=== PATIENT | male | born 1940 | race Caucasian/White ===

== ENCOUNTER 2020-01-15 14:07 | Outpatient (CLI) | payer MEDICARE, OTHER, SELFPAY ==
--- NOTE | 2020-01-15 14:29 | ECHO_ITS ---
Patient Info Name: Deon Marrero Age: 79 years : 1940 Gender: Male Ht: 67 in Wt: 240 lbs BSA: 2.32 m2 HR: 61 bpm BP: 162 / 80 mmHg Technical Quality: Good Exam Date: 01/15/2020 2:37 PM Exam Location: [facility] Pulmonary Patient Status: Outpatient Admit Date: 01/15/2020 Staff Ordering Physician: Perry Villegas MD Fish And Wildlife Biologist: Maria Medellin RDCS Attending Provider: Perry Villegas MD Referring Physician: Nelly MEDLEY; Exam Type: CA echo doppler color flow Study Info Indications - GAYLE SULTANA Complete two-dimensional, color flow and Doppler transthoracic echocardiogram is performed. Summary 1. Left ventricular chamber dimension is normal. 2. Left ventricular systolic function is normal, estimated at 60-65%. 3. Ventricular septum is sigmoid shaped. 4. The left ventricular diastolic function is grade I diastolic dysfunction. 5. Tissue doppler is not performed. 6. Left atrial chamber dimension is mildly enlarged. 7. There is trace tricuspid valve regurgitation. 8. RVSP is 37 mmHg which suggests normal pulmonary pressure. 9. There is trace pulmonic regurgitation. Left Ventricle Tissue doppler is not performed. Ventricular septum is sigmoid shaped. Left ventricular chamber dimension is normal. Left ventricular systolic function is normal, estimated at 60-65%. The left ventricular diastolic function is grade I diastolic dysfunction. Right Ventricle Right ventricular chamber dimension is normal. Right ventricular systolic function is normal. Left Atria Left atrial chamber dimension is mildly enlarged. Right Atria Right atrial chamber dimension is normal. Aortic Valve The aortic valve is trileaflet. There is no aortic valve stenosis. There is no aortic valve regurgitation. Pulmonic Valve There is trace pulmonic regurgitation. Mitral Valve There is no mitral valve stenosis. There is no mitral valve regurgitation. Tricuspid Valve RVSP is 37 mmHg which suggests normal pulmonary pressure. There is trace tricuspid valve regurgitation. Pericardium/Pleural There is no pericardial effusion. Inferior Vena Cava Normal inferior vena cava with >50% collapse upon inspiration consistent with normal right atrial pressure, 5 mmHg. Aorta The aortic root size at the sinus of Valsalva is normal. Tricuspid Valve Name Value Normal Estimated PAP/RSVP RA Pressure 5 mmHg <=5 Report Signatures
== END 2020-01-15 14:08 | disposition home or self-care (01) ==
LOC: ANHCARD 14:13
PROVIDERS: PCP Emergency Medicine; Visit Provider Emergency Medicine
DX: R06.09 Other forms of dyspnea (principal); R60.9 Edema, unspecified
CPT/HCPCS: 93306

== ENCOUNTER 2021-04-12 09:47 | Outpatient (CLI) | payer MEDICARE, OTHER, SELFPAY ==
--- NOTE | 2021-04-12 10:17 | ECG_ITS ---
Measurements Intervals [place] Rate: 53 P: 43 NE: 190 QRS: 1 QRSD: 85 T: 69 QT: 442 QTc: 415 Interpretive Statements SINUS BRADYCARDIA ATRIAL PREMATURE COMPLEXES EARLY PRECORDIAL R/S TRANSITION BASELINE ARTIFACT- I, II, III, AVL BORDERLINE ECG Electronically Signed On 04-12-2021 10:39:13 CDT by Juan Riddle D.O.
== END 2021-04-12 09:48 | disposition home or self-care (01) ==
LOC: ANHCARD 09:49
PROVIDERS: PCP Emergency Medicine; Visit Provider Emergency Medicine
DX: R00.1 Bradycardia, unspecified (principal); R94.31 Abnormal electrocardiogram [ECG] [EKG]
CPT/HCPCS: 93005

== ENCOUNTER 2022-02-27 14:26 | Inpatient (IN) | payer MEDICARE, OTHER, SELFPAY ==
--- NOTE | ~2022-02-27 | US_ITS ---
EXAMINATION: US carotid duplex BI EXAM DATE: 03/01/2022 14:41 INDICATION: Visual abnormality, speech impairment. Insomnia . TECHNIQUE: Grayscale, color and pulsed Doppler images of the cervical carotid arteries were obtained . The degree of vessel stenosis is placed in one of the following categories: normal, <50% stenosis, 50-69% stenosis, >=70% stenosis but less than near-occlusion, near-occlusion, or occlusion. Note that percent stenosis relative to normal distal artery lumen diameter is indirectly measured from velocit y measurements as described by Michael, et al. Radiology 2003; 229:340-346. There is no prior study fo r comparison. FINDINGS: RIGHT SIDE: Right common carotid artery peak systolic velocity (PSV in cm/s): 124 Right bulb/internal carotid artery peak systolic velocity (PSV in cm/s): 90 Right internal carotid artery end diastolic velocity (EDV in cm/s): 21 Right ICA/CCA peak systolic ratio: 0.7 Right external carotid artery peak systolic velocity (PSV in cm/s): 92 Right vertebral artery antegrade flow: yes There is mild carotid bulb plaque. Velocity and Doppler waveforms in the common and internal carotid arteries is normal. LEFT SIDE: Left common carotid artery peak systolic velocity (PSV in cm/s): 97 Left bulb/internal carotid artery peak systolic velocity (PSV in cm/s): 122 Left internal carotid artery end diastolic velocity (EDV in cm/s): 29 Left ICA/CCA peak systolic ratio: 1.3 Left external carotid artery peak systolic velocity (PSV in cm/s): 68 Left vertebral artery antegrade flow: yes There is mild carotid bulb plaque. Velocity and Doppler waveforms in the common and internal carotid arteries is normal. IMPRESSION: 1. Less than 50 percent stenosis in the right internal carotid artery. 2. Less than 50 percent stenosis in the left internal carotid artery. > Reviewed, dictated and finalized at location A.
--- NOTE | ~2022-02-27 | XR_ITS ---
EXAMINATION: XR chest 1V portable EXAM DATE: 02/27/2022 15:10 INDICATION: Transient Alteration Of Awareness,Worsening Last Night,Hx HTN TECHNIQUE: Portable AP frontal chest x-ray was obtained. Prior study from 2010 not available at this time for comparison. FINDINGS: The lungs are clear. There are no pleural effusions. Cardiac silhouette is prominent but magnified on this AP technique. There is no pneumothorax suspected. The bones and soft tissues ar e unremarkable. IMPRESSION: No acute cardiopulmonary findings. Reviewed, dictated and finalized at location A.
--- NOTE | ~2022-02-27 | CT_ITS ---
EXAMINATION: CT chest abdomen pelvis w con DATE: 02/28/2022 12:45 INDICATION: Night sweats, weakness and hypothyroidism TECHNIQUE: Computed tomography (CT) of the chest, abdomen, and pelvis was performed with 100 mL Omnip aque-350 intravenous contrast. Automated exposure control and iterative reconstruction technique were employed. The dose-length product was 1559.47 mGy-cm. COMPARISON: None FINDINGS: CHEST CT: Lungs are clear with no focal airspace opacities, pulmonary edema, pleural effusion or pneumothorax. Heart size is normal. Atherosclerotic coronary artery calcific location. No pericardial effusion. Aor tic valve calcification. Thoracic aorta is normal in caliber with no dissection. Thyroid is unremarka ble. No pathologically enlarged thoracic lymphadenopathy. Mild bilateral gynecomastia. Chronic anteri or wedging, mild at T7 and minimal at T6 and T8. Moderate cervical and thoracic spondylosis with brid ging osteophytes at multiple levels, consistent with diffuse idiopathic skeletal hyperostosis (DISH). ABDOMEN/PELVIS CT: Liver, gallbladder, spleen, pancreas, bilateral adrenal glands and kidneys are normal. Bowels includi ng the appendix are normal. Small fat-containing umbilical hernia. Bladder is normal. Prostatomegaly measuring 5.0 x 4.0 cm. No free intraperitoneal gas or fluid. No pathologically enlarged abdominal or pelvic lymphadenopathy. There is calcified atherosclerosis of the aorta and many of the other arteri es. Severe bilateral lower lumbar facet osteoarthritis. Otherwise mild degenerative skeletal changes in the lumbar spine and pelvis. IMPRESSION: 1. No acute intrathoracic, abdominal or pelvic process. 2. Small fat-containing umbilical hernia. 3. Prostatomegaly. Reviewed, dictated and finalized at location B.
--- NOTE | ~2022-02-27 | MR_ITS ---
EXAMINATION: MR pituitary wo/w con DATE: 02/28/2022 14:49 INDICATION: Pituitary adenoma. TECHNIQUE: Magnetic resonance imaging (MRI) of the brain and brainstem was performed without and with 20 mL MultiHance intravenous contrast. Whole-brain sequences included sagittal T1-weighted FSE, axia l diffusion-weighted FS EPI, axial T2*-weighted GRE, axial T2-weighted FLAIR Propeller, and axial T2- weighted Propeller. Small [id number] sequences included sagittal and coronal T1-weighted FSE cente red at the pituitary. Postcontrast sequences included small [id number]-[id number] coronal T1-weighted FSE in a time course and sagittal T1-weighted FSE and whole-brain axial T1-weighted FSE. Apparent diffusion coefficient (ADC) maps were created. COMPARISON: Head CT 02/27/2022 FINDINGS: There is chronic encephalomalacia in anterior left upper lobe. There are surgical changes i n the sella. The pituitary demonstrates a height of 3 mm. In the left side of the sella, there is a 1 6 x 7 x 18 mm enhancing mass. No specific evidence of cavernous sinus invasion. There are scattered a reas of nonspecific increased T2-weighted signal intensity in the cerebral white matter. There is no acute ischemic infarct or intracranial hemorrhage. The ventricles are normal in size. There is comple te opacification of right sphenoid sinus. There is mild mucosal thickening in the ethmoid sinuses. Th e mastoid air cells are normal. IMPRESSION: 1. 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 Compari son with outside preoperative and postoperative imaging may be useful. 2. Chronic encephalomalacia in anterior left temporal lobe. 3. Mild nonspecific cerebral white matter disease, which likely represents chronic small vessel ische krzysztof disease. Reviewed, dictated and finalized at location A. IMPRESSION: 1. 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 Comparison with outside preoperative and postoperative imaging m ay be useful. 2. Chronic encephalomalacia in anterior left temporal lobe. 3. Mild nonspecific cerebral white matter disease, which likely represents intermission coordinator horacio small vessel ischemic disease.
--- NOTE | ~2022-02-27 | CT_ITS ---
EXAMINATION: CT brain wo con DATE: 02/27/2022 15:18 INDICATION: Altered mental status. TECHNIQUE: Computed tomography (CT) of the head was performed without intravenous contrast. The mA wa s adjusted according to patient size. Iterative reconstruction technique was employed. The dose-lengt h product was 605.33 mGy-cm. COMPARISON: None FINDINGS: There are scattered areas of low attenuation in the cerebral white matter. There is chronic encephalomalacia in anterior left temporal lobe. There is an empty sella. There is no intracranial h emorrhage, acute infarction, or abnormal intracranial mass lesion. The ventricles are normal in size. There is mucosal thickening in the paranasal sinuses including complete opacification of right sphen oid sinus. The mastoid air cells are normal. There are likely changes of ocular lens replacement surg eries. There are changes of left-sided craniotomy. IMPRESSION: 1. Chronic encephalomalacia in anterior left temporal lobe with overlying craniotomy. 2. Mild nonspecific cerebral white matter disease, which likely represents chronic small vessel ische krzysztof disease. Reviewed, dictated and finalized at location A. IMPRESSION: 1. Chronic encephalomalacia in anterior left temporal lobe with overlying crani otomy. 2. Mild nonspecific cerebral white matter disease, which likely represents chrome polisher horacio small vessel ischemic disease.
--- NOTE | ~2022-02-27 | US_ITS ---
EXAMINATION: US thyroid DATE: 02/28/2022 12:57 INDICATION: Hypothyroidism TECHNIQUE: Multiple ultrasound images of the thyroid were obtained. COMPARISON: None. FINDINGS: The right thyroid lobe measures 4.0 x 1.5 x 2.7 cm. The left thyroid lobe measures 3.2 x 1.6 x 1.8 c m. 6 mm wide than tall solid hypoechoic right thyroid nodule with ill-defined margins (TI-RADS 4, mo derately suspicious , FNA if >=1.5 cm, annual followup is >=1 cm). There is normal echotexture, echog enicity and vascular flow throughout the thyroid gland. IMPRESSION: 1. 6 mm TI RADS 4 right thyroid nodule which remains below size criteria for either biopsy or follow- up. Otherwise normal thyroid. Reviewed, dictated and finalized at location B. IMPRESSION: 1. 6 mm TI RADS 4 right thyroid nodule which remains below size criteria for ei ther biopsy or follow-up. Otherwise normal thyroid.
[2022-02-27 14:33] VITALS: BP 177/107; PULSE 79; RESP 17; TEMP 37.2; O2SAT 94
--- NOTE | 2022-02-27 14:41 | ECG_ITS ---
Measurements Intervals [place] Rate: 78 P: 45 KS: 201 QRS: 1 QRSD: 80 T: 51 QT: 342 QTc: 390 Interpretive Statements SINUS RHYTHM WITH OCCASIONAL SUPRAVENTRICULAR PREMATURE COMPLEXES COMPARED TO ECG 04/12/2021 10:24:18 NO LONGER BRADYCARDIC. Electronically Signed On 02-27-2022 16:51:50 CDT by Celi Portillo M.D.
[2022-02-27 14:55] LABS: Base Excess ABG 0.1 mEq/l (+/-2.0); Fractional Inspired Oxygen 21 %; HCO3 ABG 24.1 mEq/l (22.0-26.0); Oxygen Content ABG 16.5 %vol (16.0-22.0); Oxygen Saturation ABG 92.3 % (95.0-100.0); Oxyhemoglobin 89.5 % THb (90.0-100.0); PCO2 ABG 37.1 mmHg (35.0-45.0); PO2 ABG 61.3 mmHg (80.0-100.0); PO2 FiO2 Ratio Arterial Blood 2.92 %; Total Hemoglobin 13.1 g/dL (12.0-18.0); pH ABG 7.431 (7.350-7.450)
[2022-02-27 14:56] LABS: Device ROOM AIR; Modified Allen's Test Pass; Site Drawn RIGHT RADIAL
--- NOTE | 2022-02-27 15:05 | ED.AMS ---
HPI - Altered Mental Status General Chief Complaint: Altered Mental Status Stated Complaint: incoherent since last noc Source: family and EMS Mode of arrival: EMS Limitations: altered mental status History of Present Illness HPI narrative: The patient is a 81-year-old male with a history of pituitary adenoma in 2006 with removal, recurrence in 2019, psoriatic arthritis, hypertension, hypothyroidism, presenting to the emergency department for evaluation of altered mental status. Patient is currently awake, alert, to person, place, and to time. However, when questioned, he has difficulty providing any details. He denies any pain. Denies any acute complaints. For EMS, glucose was 156. He was mildly hypoxic to 92% thus placed on 2 L oxygen via nasal cannula in route. Patient is not on any home oxygen. His daughter at bedside helps to provide most of the history. States that her dad over the past 4 days has had increased daytime sleepiness, somnolence. He has had decreased activity level. He is not eating or drinking at baseline. States that he does have a history of [place]UC[place] with home CPAP, but does not often sleep with his CPAP machine. Patient follows at [facility] with rheumatology, neurology, neurosurgery, endocrinology. Patient went to see his primary care physician 5 days ago, his Celebrex was discontinued at that visit, no other medication changes. He was also prescribed antifungal for a candidal yeast infection of the groin. Related Data Home Medications Medication Instructions Recorded Confirmed aspirin 81 mg tablet,delayed 81 mg PO DAILY 01/12/20 11/14/20 release cholecalciferol (vitamin D3) 50 50 mcg PO DAILY 01/12/20 11/14/20 mcg (2,000 unit) capsule latanoprost 0.005 % eye drops 1 drop OPHTHALMIC (EYE) QPM 01/12/20 11/14/20 levothyroxine 112 mcg tablet 112 mcg PO DAILY 01/12/20 11/14/20 celecoxib 200 mg capsule 200 mg PO DAILY 01/13/20 11/14/20 clobetasol 0.05 % topical cream See Rx Instructions .ROUTE .COMPLEX 01/13/20 11/14/20 Allergies Allergy/AdvReac Type Severity Reaction Status Date / Time No Known Allergies Allergy Unverified 02/27/22 14:39 Review of Systems Review of Systems: CONSTITUTIONAL: Denies fever, chills, or sweats. EYES: Denies visual changes, redness, or discharge. ENT: Denies rhinorrhea, congestion, sore throat, or otalgia. CARDIOVASCULAR: Denies chest pain, palpitations, or edema. RESPIRATORY: Denies cough or dyspnea. GASTROINTESTINAL: Denies abdominal pain, nausea, vomiting, or diarrhea. GENITOURINARY: Denies dysuria or hematuria. SKIN: Denies rash or itching. MUSCULOSKELETAL: Denies back pain, joint pain, or myalgia. NEUROLOGIC: Denies headache, numbness, or weakness. [facility] Past Medical History Medical History (Updated 02/27/22 @ 20:38 by Jennifer Parra MD) HTN (hypertension) Pituitary adenoma Family History Family History Mother Family history of cardiovascular disease, Onset Age: 89 Father Family history of cardiovascular disease, Onset Age: 92 Sibling Acute myocardial infarction Cerebrovascular accident Social History Social History Smoking status: Never smoker Alcohol intake: never Exam Narrative: GENERAL: Awake, alert, intermittently somnolent, easily arousable HEAD: Normocephalic, atraumatic. EYES: 2+ PERRLA and EOMI and normal without gaze palsy ENT: Nares clear, no rhinorrhea or epistaxis. Mucous membranes dry NECK: Supple. No lymphadenopathy. CHEST: No respiratory distress, breathing even and non labored, no crackles HEART: Regular rate, sinus rhythm ABDOMEN: Mildly protuberant, Non distended, non tender EXTREMITIES: Normal range of motion. No significant edema. SKIN: Warm, dry, no rash. NEURO:No focal deficits. Alert and oriented x3. Finger to nose intact bilaterally. EOMs intact without nystagmus. No f
[2022-02-27 15:08] LABS: Basophils Percent Auto 0.5 % (0.2-1.2); Eosinophils Percent Auto 0.5 % (0-4.4); Hematocrit 40.7 % (42.0-52.0); Hemoglobin 13.2 g/dL (14.0-18.0); Immature Granulocyte Absolute 0.02 K/mm3 (0.00-0.031); Immature Granulocyte Percent A 0.3 % (0-0.5); Lymphocytes Percent Auto 26.4 % (18.3-44.2); Mean Corpuscular HGB Conc 32.4 g/dl (32-36); Mean Corpuscular Hemoglobin 29.4 pg (26-34); Mean Corpuscular Volume 90.6 fl (80-100); Mean Platelet Volume 9.4 fl (7.4-10.4); Monocytes Absolute Auto 1.1 K/mm3 (0.1-0.6); Monocytes Percent Auto 16.3 % (2.6-8.5); Neutrophils Absolute Auto 3.6 K/mm3 (1.3-6.7); Platelet Count Result 171 k/mm3 (150-375); Red Blood Count 4.49 M/mm3 (4.6-6.20); Red Cell Distribution Width 14.6 % (11.5-14.5); White Blood Count 6.4 K/mm3 (4.5-10.0)
[2022-02-27 15:17] LABS: Ammonia < 9 umol/L (9-30)
[2022-02-27 15:20] LABS: INR 1.2; Prothrombin Time 15.1 Seconds (11.1-14.7)
[2022-02-27 15:21] LABS: Alanine Aminotransferase 21 U/L (4-50); Albumin Level 4.4 g/dL (3.5-5.1); Alkaline Phosphatase 63 U/L (38-126); Anion Gap 7 mmol/L (8-16); Aspartate Amino Transferase 38 U/L (17-59); Bilirubin,Total 0.4 mg/dL (0.2-1.3); Blood Urea Nitrogen 20 mg/dL (9-20); Calcium 8.7 mg/dL (8.4-10.2); Carbon Dioxide 24 mmol/L (22-30); Chloride 101 mmol/L (98-107); Estimated CRCL calculation 69 ml/min; Estimated Glomerular Filt Rate > 60; Glucose 118 mg/dL (65-110); Partial Thromboplastin Time 29.2 SECONDS (22.3-36.8); Sodium 132 mmol/L (137-145)
[2022-02-27 15:33] LABS: Troponin I < 0.012 ng/mL (0.000-0.034)
[2022-02-27 15:52] LABS: Thyroid Stimulating Hormone 0.352 uIU/mL (0.465-4.680)
[2022-02-27] MEDS: SODIUM CHLORIDE 0.9% IV 1,000 ML 999 ML IV CONT (16:58)
[2022-02-27 17:09] LABS: Add Urine Microscopic? YES; Appearance Urine Clear (Clear); Bilirubin Urine Negative (Negative); Blood Urine Negative (Negative); Color Urine Yellow (Yellow); Glucose Urine UA Negative (Negative); Ketones Urine Negative (Negative); Leukocyte Esterase Ur Negative LEU/UL (Negative); Mucus Urine Rare /lpf; Nitrate Urine Negative (Negative); Protein Urine 1+ mg/dL (Negative); RBC Urine 0-2 /hpf (0-2); Specific Grav Ur 1.026 (1.001-1.035); Squamous Epithelial Cell Urine Rare /hpf (Few); Urobilinogen Urine Negative mg/dL (<2.0); WBC Urine 0-3 /hpf
[2022-02-27] MEDS: KETOROLAC 15 MG/ML VIAL (*BKC) IV PUSH (17:23)
[2022-02-27 19:25] VITALS: BP 151/71; PULSE 72; RESP 16; O2SAT 93
[2022-02-27 19:40] LABS: NT Pro B Type Natriuretic Pept 211 pg/mL (5-100)
[2022-02-27 20:00] VITALS: PULSE 71
[2022-02-27 20:09] VITALS: BP 155/70; PULSE 72; RESP 16; O2SAT 94
[2022-02-27 20:26] VITALS: BP 158/56; PULSE 69; RESP 17; TEMP 36.8; O2SAT 94; BMI 35.6
[2022-02-27 20:32] VITALS: BP 158/56; PULSE 69; RESP 17; TEMP 36.8; O2SAT 94
[2022-02-27 21:23] VITALS: BMI 35.6
--- NOTE | 2022-02-27 21:26 | PC.NURSE ---
This patient, Deon Marrero, was admitted to Medical Room 254-01. Patient/family oriented to hospital policies and general routines including ID bracelet, bed and alarms, visiting hours, pain management, procedures, bathroom and other care routines, personal items, smoking policy, room service/diet, and visiting hours. Information on how to activate the Rapid Response Team has been discussed. Patient/Family are encouraged to report perceived risks to care and to ask questions if they do not understand what they are told or what they should do.
--- NOTE | 2022-02-27 22:15 | PM.IMHP ---
H&P: HPI History of Present Illness Date/Time: 02/27/22 22:15 Chief Complaint: Weakness and altered mental status. Narrative: This is a pleasant 81-year-old male with history of pituitary adenoma status post resection, cerebrovascular accident, psoriatic arthritis, hypertension, hypothyroidism, and other comorbidities who presented to the emergency department via EMS from home for evaluation of weakness and altered mental status. He is alert and oriented x4 at the time my evaluation and he is able to provide a good history. From what I can gather these past 4 days he has just not felt like himself with generalized weakness, slow thought processes, mild slurred speech, and hypersomnolence. His daughter reports him as being ?incoherent? starting last night however she could not really give any more specifics. The patient himself also reports having frequent episodes where he will sweat through his shirt though he has no known fever or chills. With further questioning he admits to having occasional midsternal chest heaviness ?for a while? though he cannot provide me any further details. Specifically he is unable to tell me in what setting it occurs, how long it lasts, and how long it has been going on. His vital signs were stable on EMS arrival and his glucose was 156. Workup done in the emergency department was really unremarkable aside from mild hyponatremia and a TSH of 0.352. Head CT, chest x-ray, and urinalysis were also unremarkable. EKG demonstrated no acute findings. At the time my evaluation he had to urinate and a helped him stand at the side of the bed to use the urinal and he seemed unsteady on his feet. He has not had any falls but admits that he has felt like he may fall due to the weakness. Currently he has no complaints and specifically denies fever, headache, neck ache, acute visual changes (he has chronic diplopia with extreme lateral gaze), focal weakness, paresthesias, facial droop, dysarthria, dysphagia, current chest pain, pleuritic pain, palpitations, orthopnea, paroxysmal nocturnal dyspnea, edema, nausea, vomiting, diarrhea, and dysuria. He denies sick contacts, recent falls, recent procedures, recent change in medications (aside from discontinuing Celebrex), and missed medications. He has no history of seizure however a couple of times during the interview when I asked him questions he would become silent and stare straight ahead for upwards of 20 seconds before a repeat the question and he was able to answer. Review of Systems Review of Systems: Twelve systems were reviewed and are negative except for as per HPI. [facility] Past Medical History Medical History (Updated 02/27/22 @ 22:59 by Dominique Linn PA-C) Cerebrovascular accident Chronic facial pain V1 V2 distribution following multiple surgeries and radiation for pituitary adenoma. Glaucoma Hyperlipidemia Hypertension Hypogonadism Hypothyroidism Pituitary adenoma Status post transsphenoidal resection in October 2006, CyberKnife radiosurgery in August 2007, and stereotactic craniotomy for debulking in December 2018 followed by postoperative radiation. Psoriasis Psoriatic arthritis Right leg DVT Surgical History Surgical History (Updated 02/27/22 @ 22:57 by Dominique Linn PA-C) History of bilateral cataract extraction History of colonoscopy with polypectomy Family History Family History Mother Family history of cardiovascular disease, Onset Age: 89 Father Family history of cardiovascular disease, Onset Age: 92 Sibling Acute myocardial infarction Cerebrovascular accident Social History Social History (Updated 02/28/22 @ 00:24 by Dominique Linn PA-C) Social History: The patient lives in [place] with his and daughter. No alcohol, tobacco, or illicit substance use. He designates his Aleah and his daughter Chula as his surrogate decision makers. Code status: Full code
[2022-02-28] VITALS (8 sets, daily range): BP systolic 144–163; BP diastolic 67–83; PULSE 67–89; RESP 17–20; TEMP 35.7–36.6; O2SAT 93–97
--- NOTE | 2022-02-28 00:13 | ECHO_ITS ---
Patient Info Name: Deon Marrero Age: 81 years : 1940 Gender: Male Ht: 68 in Wt: 234 lbs BSA: 2.30 m2 BP: 160 / 67 mmHg Heart Rhythm: Indeterminant Technical Quality: Fair Exam Date: 02/28/2022 9:15 AM Exam Location: [facility] Pul[facility] Patient Status: Inpatient Admit Date: 02/27/2022 Staff Ordering Physician: Dominique Linn PA-C Morgue Keeper: Caren Higgins RDCS Attending Provider: Sue Nichols DO Referring Physician: Temitope FRANCIS; Exam Type: CA echo dop color flow w con Study Info Indications - weakness, diaphoresis Complete two-dimensional, color flow and Doppler transthoracic echocardiogram is performed with contrast to opacify the left ventricle and to improve the deliniation of the left ventricle endocardial borders. Contrast/Agitated Saline Contrast/Ag. Saline: Definity Amount: 2.00 ml Administered By: Caren Higgins RDCS Existing IV Access: Yes IV Access Condition: patent with no signs of infiltration Summary 1. Normal left ventricular size with mild asymmetric septal hypertrophy, 1.5 cm. No evidence of intraventricular gradient. Hyperdynamic systolic function, no segmental wall motion abnormalities. Ejection fraction was 78%. Grade 2 diastolic dysfunction is present. 2. No pulmonary hypertension, estimated pulmonary arterial systolic pressure is 25 mmHg. 3. The aortic root size is mildly dilated, 4.0 cm. 4. No significant valve disease. 5. Rhythm indeterminate. Left Ventricle Left ventricular chamber dimension is normal. Left ventricular systolic function is hyperdynamic, estimated at Empty. There is mild asymmetric septal increased left ventricular wall thickness. Left ventricular septal wall motion is normal. The left ventricular diastolic function is grade II diastolic dysfunction. Right Ventricle Right ventricular chamber dimension is normal. Right ventricular systolic function is normal. Left Atria Left atrial chamber dimension is normal. Right Atria Right atrial chamber dimension is normal. Aortic Valve The aortic valve is trileaflet. There is no aortic valve sclerosis. There is no aortic valve stenosis. There is trace aortic valve regurgitation. Pulmonic Valve The pulmonic valve is normal. There is no pulmonic valve stenosis. There is no pulmonic regurgitation. Mitral Valve The mitral valve has normal leaflets. There is no mitral valve stenosis. There is no mitral valve regurgitation. Tricuspid Valve The tricuspid valve leaflets are normal. There is no significant tricuspid valve stenosis. There is trace tricuspid valve regurgitation. No pulmonary hypertension, estimated pulmonary arterial systolic pressure is 25 mmHg. Pericardium/Pleural The pericardium appears normal. There is no pericardial effusion. Inferior Vena Cava Not well visualized inferior vena cava with >50% collapse upon inspiration consistent with Empty right atrial pressure, 10 mmHg. Aorta The aortic root size is mildly dilated, 4.0 cm. The prox ascending aorta size is normal. Left Ventricular Outflow Tract Name Value Normal LVOT 2D LVOT Diameter 2.02 cm LVOT D
[2022-02-28 05:43] LABS: Hematocrit 40.7 % (42.0-52.0); Mean Corpuscular HGB Conc 31.9 g/dl (32-36); Mean Corpuscular Hemoglobin 29.4 pg (26-34); Mean Corpuscular Volume 92.1 fl (80-100); Mean Platelet Volume 9.4 fl (7.4-10.4); Platelet Count Result 162 k/mm3 (150-375); Red Blood Count 4.42 M/mm3 (4.6-6.20); Red Cell Distribution Width 14.3 % (11.5-14.5); White Blood Count 4.5 K/mm3 (4.5-10.0)
[2022-02-28 05:57] LABS: Anion Gap 9 mmol/L (8-16); Blood Urea Nitrogen 18 mg/dL (9-20); Calcium 8.7 mg/dL (8.4-10.2); Carbon Dioxide 26 mmol/L (22-30); Chloride 103 mmol/L (98-107); Estimated CRCL calculation 87 ml/min; Estimated Glomerular Filt Rate > 60; Glucose 166 mg/dL (65-110); Magnesium 2.3 mg/dL (1.6-2.3); Potassium 3.8 mmol/L (3.4-5.0); Sodium 138 mmol/L (137-145)
[2022-02-28 06:24] LABS: Cortisol Baseline 1.57 ug/dL
[2022-02-28 06:38] LABS: Free T4 Free Thyroxine 1.05 ng/mL (0.78-2.19)
[2022-02-28 08:15] LABS: Parathyroid Intact 27.1 pg/mL (7.5-53.5)
[2022-02-28] MEDS: PRAVASTATIN SODIUM 20 MG TABLET 40 MG PO (09:08)
[2022-02-28] MEDS: GABAPENTIN 300 MG CAPSULE 600 MG PO ×3 (09:08→17:10)
[2022-02-28] MEDS: amLODIPine BESYLATE 5 MG TABLET 10 MG PO (09:08)
[2022-02-28] MEDS: ASPIRIN 81 MG ENTERIC TABLET PO (09:08)
[2022-02-28] MEDS: CHOLECALCIFEROL 1,000 UNITS TABLET 2000 UNITS PO (09:08)
[2022-02-28] MEDS: LOSARTAN POTASSIUM 25 MG TABLET PO (09:09)
[2022-02-28] MEDS: BRIMONIDINE TARTRATE 0.2% OP SOLN 5 ML BTL 1 DROP EACH EYE (09:24)
--- NOTE | 2022-02-28 09:30 | P.PNIM_ITS ---
Progress Note: A&P Assessment and Plan (1) Generalized weakness: Code(s): R53.1 - Weakness Status: Acute Assessment and Plan: * Ongoing for approximately 4 days * Etiology is not entirely clear * vital signs have been stable and his workup thus far has really been unremarkable. * Echocardiogram ordered to rule out cardiac abnormalities * hypopituitarism, baseline cortisol level * TSH is slightly low and free T4 is 1.05 * check a testosterone level * sleep apnea is untreated for many years which could be causing his daytime somnolence * blood cultures pending to rule out infection * Chest/Abd/Pelvic with contrast ordered and pending * Thyroid ultrasound also ordered * Fall precautions * PT/OT has been consulted. (2) Transient alteration of awareness: Code(s): R40.4 - Transient alteration of awareness Status: Acute Assessment and Plan: * Alert and oriented x4 * Reported slurred speech, hypersomnolence * absent or partial seizures witness him having periods up to 20 seconds where he would not speak and was staring straight ahead * Brain MRI ordered * EEG ordered for possible seizures * Neurology consulted * See above (3) Hypertension: Code(s): I10 - Essential (primary) hypertension Status: Acute Assessment and Plan: * Current BP is 160/67 * Resume home amlodipine 10mg PO Daily, losartan 25mg PO daily * Trend BP * Adjust therapy as indicated (4) Hypothyroidism: Code(s): E03.9 - Hypothyroidism, unspecified Status: Acute Assessment and Plan: * TSH 0.352, T4 1.05 * Levothyroxine on hold still * Could be partially be causing his symptom * Research shows that patient with uncontrolled TSH exhibits stare and lid lag, skin hot and moist, with a afib for subclinical hyperthyroidism (5) Pituitary adenoma: Code(s): D35.2 - Benign neoplasm of pituitary gland Status: Acute Assessment and Plan: * MRI of the pituitary gland ordered in conjunction with brain MRI. * Could be the reason for the hyperthyroidism * Will probably need some outpatient follow up Time Spent With Patient Time with patient: Greater than 35 minutes Subjective Date/time seen: 02/28/22 09:30 Interval history: Date/Time: 02/27/22 22:15 Narrative: This is a pleasant 81-year-old male with history of pituitary adenoma status post resection, cerebrovascular accident, psoriatic arthritis, hypertension, hypothyroidism, and other comorbidities who presented to the emergency department via EMS from home for evaluation of weakness and altered mental status. He is alert and oriented x4 at the time my evaluation and he is able to provide a good history. From what I can gather these past 4 days he has just not felt like himself with generalized weakness, slow thought processes, mild slurred speech, and hypersomnolence. His daughter reports him as being ?incoherent? starting last night however she could not really give any more specifics. The patient himself also reports having frequent episodes where he will sweat through his shirt though he has no known fever or chills. With further questioning he admits to having occasional midsternal chest heaviness ?for a while? though he cannot provide me any further details. Specifically he is unable to tell me in what setting it occurs, how long it lasts, and how long it has been going on. His vital signs were stable on EMS arrival and his glucose was 156. Workup done in the emergency department was really u
--- NOTE | 2022-02-28 09:30 | PM.IMPN ---
Progress Note: A&P Assessment and Plan (1) Generalized weakness: Code(s): R53.1 - Weakness Status: Acute Assessment and Plan: Ongoing for approximately 4 days Etiology is not entirely clear vital signs have been stable and his workup thus far has really been unremarkable. Echocardiogram ordered to rule out cardiac abnormalities hypopituitarism, baseline cortisol level TSH is slightly low and free T4 is 1.05 check a testosterone level sleep apnea is untreated for many years which could be causing his daytime somnolence blood cultures pending to rule out infection Chest/Abd/Pelvic with contrast ordered and pending Thyroid ultrasound also ordered Fall precautions PT/OT has been consulted. (2) Transient alteration of awareness: Code(s): R40.4 - Transient alteration of awareness Status: Acute Assessment and Plan: Alert and oriented x4 Reported slurred speech, hypersomnolence absent or partial seizures witness him having periods up to 20 seconds where he would not speak and was staring straight ahead Brain MRI ordered EEG ordered for possible seizures Neurology consulted See above (3) Hypertension: Code(s): I10 - Essential (primary) hypertension Status: Acute Assessment and Plan: Current BP is 160/67 Resume home amlodipine 10mg PO Daily, losartan 25mg PO daily Trend BP Adjust therapy as indicated (4) Hypothyroidism: Code(s): E03.9 - Hypothyroidism, unspecified Status: Acute Assessment and Plan: TSH 0.352, T4 1.05 Levothyroxine on hold still Could be partially be causing his symptom Research shows that patient with uncontrolled TSH exhibits stare and lid lag, skin hot and moist, with a afib for subclinical hyperthyroidism (5) Pituitary adenoma: Code(s): D35.2 - Benign neoplasm of pituitary gland Status: Acute Assessment and Plan: MRI of the pituitary gland ordered in conjunction with brain MRI. Could be the reason for the hyperthyroidism Will probably need some outpatient follow up Time Spent With Patient Time with patient: Greater than 35 minutes Subjective Date/time seen: 02/28/22 09:30 Interval history: Date/Time: 02/27/22 22:15 Narrative: This is a pleasant 81-year-old male with history of pituitary adenoma status post resection, cerebrovascular accident, psoriatic arthritis, hypertension, hypothyroidism, and other comorbidities who presented to the emergency department via EMS from home for evaluation of weakness and altered mental status. He is alert and oriented x4 at the time my evaluation and he is able to provide a good history. From what I can gather these past 4 days he has just not felt like himself with generalized weakness, slow thought processes, mild slurred speech, and hypersomnolence. His daughter reports him as being ?incoherent? starting last night however she could not really give any more specifics. The patient himself also reports having frequent episodes where he will sweat through his shirt though he has no known fever or chills. With further questioning he admits to having occasional midsternal chest heaviness ?for a while? though he cannot provide me any further details. Specifically he is unable to tell me in what setting it occurs, how long it lasts, and how long it has been going on. His vital signs were stable on EMS arrival and his glucose was 156. Workup done in the emergency department was really unremarkable aside from mild hyponatremia and a TSH of 0.352. Head CT, chest x-ray, and urinalysis were also unremarkable. EKG demonstrated no acute findings. At the time my evaluation he had to urinate and a helped him stand at the side of the bed to use the urinal and he seemed unsteady on his feet. He has not had any falls but admits that he has felt like he may fall due to the weakness. Currently he has no complaints and specifically denies f
[2022-02-28] MEDS: PERFLUTREN LIPID MICROSPHERES 1.5 ML VIAL DILUTED TO 10 ML TOTAL VOLUME IV PUSH (09:33)
--- NOTE | 2022-02-28 09:33 | IVDEFINITY ---
Prior to administration of IV Definity the patient was educated on the risks and benefits of the imaging enhancing agent including potential adverse side effects. The patient verbalized understanding. Allergies were verified. No exclusion criteria were identified and at least one of the following inclusion criteria were met: 1) physician request, 2) patient technically difficult to image (per the [place] [employer] guidelines of two or more segments not discernable within the apical view), or 3) questionable left ventricular function. ?
--- NOTE | 2022-02-28 11:32 | PCPTNOTE ---
Attempted to see patient for physical therapy evaluation at 11:30. Patient was having and EEG test done.
[2022-02-28 11:51] LABS: Glucose Point of Care 121 mg/dl (65-105)
--- NOTE | 2022-02-28 14:45 | PCPTNOTE ---
Attempted physical therapy evaluation, Per RN patient off floor for testing. Will continue to follow.
[2022-02-28 16:32] LABS: Glucose Point of Care 115 mg/dl (65-105)
[2022-02-28] MEDS: LATANOPROST 0.005% OP SOLN 2.5 ML BTL 1 DROP EACH EYE (17:10)
[2022-02-28 20:24] LABS: Glucose Point of Care 136 mg/dl (65-105)
[2022-03-01] MEDS: ACETAMINOPHEN 325 MG TABLET 650 MG PO (02:55)
[2022-03-01 04:47] VITALS: BP 150/72; PULSE 67; RESP 17; TEMP 36.2; O2SAT 94
[2022-03-01 05:53] LABS: Basophils Percent Auto 0.3 % (0.2-1.2); Eosinophils Absolute Auto 0.1 K/mm3 (0-0.3); Eosinophils Percent Auto 0.8 % (0-4.4); Hematocrit 40.5 % (42.0-52.0); Hemoglobin 13.2 g/dL (14.0-18.0); Immature Granulocyte Absolute 0.02 K/mm3 (0.00-0.031); Immature Granulocyte Percent A 0.3 % (0-0.5); Lymphocytes Absolute Auto 3.19 K/mm3 (0.9-3.2); Lymphocytes Percent Auto 44.6 % (18.3-44.2); Mean Corpuscular HGB Conc 32.6 g/dl (32-36); Mean Corpuscular Hemoglobin 29.1 pg (26-34); Mean Corpuscular Volume 89.2 fl (80-100); Mean Platelet Volume 9.5 fl (7.4-10.4); Monocytes Absolute Auto 0.6 K/mm3 (0.1-0.6); Monocytes Percent Auto 8.8 % (2.6-8.5); Neutrophils Absolute Auto 3.2 K/mm3 (1.3-6.7); Neutrophils Percent Auto 45.2 % (45.5-73.1); Platelet Count Result 180 k/mm3 (150-375); Red Blood Count 4.54 M/mm3 (4.6-6.20); Red Cell Distribution Width 14.5 % (11.5-14.5); White Blood Count 7.2 K/mm3 (4.5-10.0)
[2022-03-01 06:04] LABS: Alanine Aminotransferase 21 U/L (4-50); Albumin Level 4.2 g/dL (3.5-5.1); Alkaline Phosphatase 72 U/L (38-126); Anion Gap 8 mmol/L (8-16); Aspartate Amino Transferase 37 U/L (17-59); Bilirubin,Total 0.3 mg/dL (0.2-1.3); Blood Urea Nitrogen 19 mg/dL (9-20); Calcium 8.8 mg/dL (8.4-10.2); Carbon Dioxide 27 mmol/L (22-30); Chloride 105 mmol/L (98-107); Estimated CRCL calculation 78 ml/min; Estimated Glomerular Filt Rate > 60; Glucose 99 mg/dL (65-110); Magnesium 2.2 mg/dL (1.6-2.3); Potassium 3.8 mmol/L (3.4-5.0); Sodium 140 mmol/L (137-145)
[2022-03-01 07:54] LABS: Glucose Point of Care 91 mg/dl (65-105)
[2022-03-01 09:01] VITALS: BP 148/76; PULSE 78; RESP 16; O2SAT 96
[2022-03-01] MEDS: CHOLECALCIFEROL 1,000 UNITS TABLET 2000 UNITS PO (09:02)
[2022-03-01] MEDS: ASPIRIN 81 MG ENTERIC TABLET PO (09:02)
[2022-03-01] MEDS: PRAVASTATIN SODIUM 20 MG TABLET 40 MG PO (09:02)
[2022-03-01] MEDS: amLODIPine BESYLATE 5 MG TABLET 10 MG PO (09:02)
[2022-03-01] MEDS: LOSARTAN POTASSIUM 25 MG TABLET PO (09:02)
[2022-03-01] MEDS: GABAPENTIN 300 MG CAPSULE 600 MG PO ×3 (09:02→17:07)
[2022-03-01] MEDS: TIMOLOL MALEATE 0.5% OP SOLN 5 ML BOTTLE 1 DROP EACH EYE (09:03)
[2022-03-01] MEDS: BRIMONIDINE TARTRATE 0.2% OP SOLN 5 ML BTL 1 DROP EACH EYE (09:03)
[2022-03-01 09:10] VITALS: O2SAT 96
--- NOTE | 2022-03-01 09:40 | PM.IMPN ---
Progress Note: A&P Assessment and Plan (1) Generalized weakness: Code(s): R53.1 - Weakness Status: Acute Assessment and Plan: Ongoing for approximately 4 days Etiology is not entirely clear vital signs have been stable and his workup thus far has really been unremarkable. Echocardiogram EF of 78% grade 2 diastolic dysfunction hypopituitarism, baseline cortisol level TSH is slightly low and free T4 is 1.05 check a testosterone level sleep apnea is untreated for many years which could be causing his daytime somnolence blood cultures pending to rule out infection Chest/Abd/Pelvic with contrast does not show any signs of infection Thyroid ultrasound showed very small nodule Fall precautions PT/OT has been consulted. Patient does have a cough with sputum production that is green in nature, could be allergies, he stated that when this happens in the past that he is usually given ampicillin, which usually takes care of it Will start him on Augmentin for possible sinus infection (2) Transient alteration of awareness: Code(s): R40.4 - Transient alteration of awareness Status: Acute Assessment and Plan: Alert and oriented x4 Reported slurred speech, hypersomnolence absent or partial seizures witness him having periods up to 20 seconds where he would not speak and was staring straight ahead Brain MRI no stroke, however 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, with operative changes EEG ordered for possible seizures Neurology consulted, however, is not in this week, will have the patient follow up with his neurosurgery See above (3) Hypertension: Code(s): I10 - Essential (primary) hypertension Status: Acute Assessment and Plan: Current BP is 148/76 Resume home amlodipine 10mg PO Daily, losartan 25mg PO daily Trend BP Adjust therapy as indicated (4) Hypothyroidism: Code(s): E03.9 - Hypothyroidism, unspecified Status: Acute Assessment and Plan: TSH 0.352, T4 1.05 Levothyroxine on hold still Could be partially be causing his symptom Research shows that patient with uncontrolled TSH exhibits stare and lid lag, skin hot and moist, with a afib for subclinical hyperthyroidism Will restart levothyroxine (5) Pituitary adenoma: Code(s): D35.2 - Benign neoplasm of pituitary gland Status: Acute Assessment and Plan: MRI of the pituitary gland ordered in conjunction with brain MRI. Could be the reason for the hyperthyroidism Follow Dr. Bentley of neurosurgery and Dr. Caceres for neurology (6) Congestive heart failure: Code(s): I50.9 - Heart failure, unspecified Status: Acute Assessment and Plan: BNP 233 Echo shows EF of 78% and grade 2 diastolic dysfunction Give one dose of Lasix since he has a new cough Trend urine output Probably a chronic diastolic heart failure, do not think that he is in acute exacerbation at this time Trend weight (7) Blood in stool, delfin: Code(s): K92.1 - Melena Status: Acute Assessment and Plan: Reports delfin red blood with stools x 2 No stool since yesterday H/H stable Trend H/H and repeat labs in the am Sounds more like a hemorrhoid Subjective Date/time seen: 03/01/22 0940 Interval history: Date/Time: 02/27/22 22:15 Narrative: This is a pleasant 81-year-old male with history of pituitary adenoma status post resection, cerebrovascular accident, psoriatic arthritis, hypertension, hypothyroidism, and other comorbidities who presented to the emergency department via EMS from home for evaluation of weakness and altered mental status. He is alert and oriented x4 at the time my evaluation and he is able to provide a good history. From what I can gather these past 4 days he has just not felt like himself with generalized weakness, slow thought processes, mil
--- NOTE | 2022-03-01 09:40 | P.PNIM_ITS ---
Progress Note: A&P Assessment and Plan (1) Generalized weakness: Code(s): R53.1 - Weakness Status: Acute Assessment and Plan: * Ongoing for approximately 4 days * Etiology is not entirely clear * vital signs have been stable and his workup thus far has really been unremarkable. * Echocardiogram EF of 78% grade 2 diastolic dysfunction * hypopituitarism, baseline cortisol level * TSH is slightly low and free T4 is 1.05 * check a testosterone level * sleep apnea is untreated for many years which could be causing his daytime somnolence * blood cultures pending to rule out infection * Chest/Abd/Pelvic with contrast does not show any signs of infection * Thyroid ultrasound showed very small nodule * Fall precautions * PT/OT has been consulted. * Patient does have a cough with sputum production that is green in nature, could be allergies, he stated that when this happens in the past that he is usually given ampicillin, which usually takes care of it * Will start him on Augmentin for possible sinus infection (2) Transient alteration of awareness: Code(s): R40.4 - Transient alteration of awareness Status: Acute Assessment and Plan: * Alert and oriented x4 * Reported slurred speech, hypersomnolence * absent or partial seizures witness him having periods up to 20 seconds where he would not speak and was staring straight ahead * Brain MRI no stroke, however there remains a tumor [id number] on the left side sella, with operative changes * EEG ordered for possible seizures * Neurology consulted, however, is not in this week, will have the patient follow up with his neurosurgery * See above (3) Hypertension: Code(s): I10 - Essential (primary) hypertension Status: Acute Assessment and Plan: * Current BP is 148/76 * Resume home amlodipine 10mg PO Daily, losartan 25mg PO daily * Trend BP * Adjust therapy as indicated (4) Hypothyroidism: Code(s): E03.9 - Hypothyroidism, unspecified Status: Acute Assessment and Plan: * TSH 0.352, T4 1.05 * Levothyroxine on hold still * Could be partially be causing his symptom * Research shows that patient with uncontrolled TSH exhibits stare and lid lag, skin hot and moist, with a afib for subclinical hyperthyroidism * Will restart levothyroxine (5) Pituitary adenoma: Code(s): D35.2 - Benign neoplasm of pituitary gland Status: Acute Assessment and Plan: * MRI of the pituitary gland ordered in conjunction with brain MRI. * Could be the reason for the hyperthyroidism * Follow Dr. Bentley of neurosurgery and Dr. Caceres for neurology (6) Congestive heart failure: Code(s): I50.9 - Heart failure, unspecified Status: Acute Assessment and Plan: * BNP 233 * Echo shows EF of 78% and grade 2 diastolic dysfunction * Give one dose of Lasix since he has a new cough * Trend urine output * Probably a chronic diastolic heart failure, do not think that he is in acute exacerbation at this time * Trend weight (7) Blood in stool, delfin: Code(s): K92.1 - Melena Status: Acute Assessment and Plan: * Reports delfin red blood with stools x 2 * No stool since yesterday * H/H stable * Trend H/H and repeat labs in the am * Sounds more like a hemorrhoid Subjective Date/time seen: 03/01/22 0940 Interval history: Date/Ti
[2022-03-01] MEDS: FUROSEMIDE INJ 40 MG/4 ML VIAL 20 MG IV PUSH (11:09)
[2022-03-01] MEDS: AMOXICILLIN/CLAVULANATE K 875-125 MG TAB 1 TABLET PO ×2 (11:09→20:45)
[2022-03-01 11:45] LABS: Glucose Point of Care 113 mg/dl (65-105)
[2022-03-01 16:30] VITALS: BP 170/70; PULSE 71; RESP 16; TEMP 36.5; O2SAT 92
[2022-03-01 16:37] LABS: Glucose Point of Care 89 mg/dl (65-105)
[2022-03-01] MEDS: LATANOPROST 0.005% OP SOLN 2.5 ML BTL 1 DROP EACH EYE (17:07)
[2022-03-01 19:22] VITALS: BP 158/74; PULSE 70; RESP 20; TEMP 36; O2SAT 94
[2022-03-01 20:45] LABS: Glucose Point of Care 122 mg/dl (65-105)
[2022-03-02 04:38] VITALS: BP 156/73; PULSE 66; RESP 22; TEMP 36.6; O2SAT 92
[2022-03-02 05:22] LABS: Basophils Percent Auto 0.3 % (0.2-1.2); Eosinophils Absolute Auto 0.1 K/mm3 (0-0.3); Eosinophils Percent Auto 1.5 % (0-4.4); Hematocrit 39.1 % (42.0-52.0); Hemoglobin 12.3 g/dL (14.0-18.0); Immature Granulocyte Absolute 0.01 K/mm3 (0.00-0.031); Immature Granulocyte Percent A 0.1 % (0-0.5); Lymphocytes Absolute Auto 3.16 K/mm3 (0.9-3.2); Lymphocytes Percent Auto 46.5 % (18.3-44.2); Mean Corpuscular HGB Conc 31.5 g/dl (32-36); Mean Corpuscular Hemoglobin 28.8 pg (26-34); Mean Corpuscular Volume 91.6 fl (80-100); Mean Platelet Volume 9.4 fl (7.4-10.4); Monocytes Absolute Auto 0.7 K/mm3 (0.1-0.6); Monocytes Percent Auto 10.9 % (2.6-8.5); Neutrophils Absolute Auto 2.8 K/mm3 (1.3-6.7); Neutrophils Percent Auto 40.7 % (45.5-73.1); Platelet Count Result 158 k/mm3 (150-375); Red Blood Count 4.27 M/mm3 (4.6-6.20); Red Cell Distribution Width 14.7 % (11.5-14.5); White Blood Count 6.8 K/mm3 (4.5-10.0)
[2022-03-02 05:40] LABS: Alanine Aminotransferase 21 U/L (4-50); Albumin Level 3.7 g/dL (3.5-5.1); Alkaline Phosphatase 61 U/L (38-126); Anion Gap 4 mmol/L (8-16); Aspartate Amino Transferase 34 U/L (17-59); Bilirubin,Total 0.4 mg/dL (0.2-1.3); Blood Urea Nitrogen 21 mg/dL (9-20); Calcium 8.2 mg/dL (8.4-10.2); Carbon Dioxide 30 mmol/L (22-30); Chloride 100 mmol/L (98-107); Estimated CRCL calculation 87 ml/min; Estimated Glomerular Filt Rate > 60; Glucose 91 mg/dL (65-110); Sodium 134 mmol/L (137-145)
[2022-03-02 07:38] LABS: Glucose Point of Care 95 mg/dl (65-105)
[2022-03-02] MEDS: ASPIRIN 81 MG ENTERIC TABLET PO (08:07)
[2022-03-02] MEDS: CHOLECALCIFEROL 1,000 UNITS TABLET 2000 UNITS PO (08:07)
[2022-03-02] MEDS: amLODIPine BESYLATE 5 MG TABLET 10 MG PO (08:07)
[2022-03-02] MEDS: AMOXICILLIN/CLAVULANATE K 875-125 MG TAB 1 TABLET PO (08:07)
[2022-03-02] MEDS: BRIMONIDINE TARTRATE 0.2% OP SOLN 5 ML BTL 1 DROP EACH EYE (08:08)
[2022-03-02] MEDS: GABAPENTIN 300 MG CAPSULE 600 MG PO ×2 (08:08→12:19)
[2022-03-02] MEDS: LOSARTAN POTASSIUM 25 MG TABLET PO (08:08)
[2022-03-02] MEDS: TIMOLOL MALEATE 0.5% OP SOLN 5 ML BOTTLE 1 DROP EACH EYE (08:08)
[2022-03-02] MEDS: PRAVASTATIN SODIUM 20 MG TABLET 40 MG PO (08:08)
--- NOTE | 2022-03-02 09:45 | PM.DS ---
DS: Admitting Diagnosis Discharge Date 03/02/2215 Admitting Diagnosis generalized weakness, transient alteration of awareness DS: Discharge Diagnosis Discharge Diagnosis (1) Generalized weakness: Code(s): R53.1 - Weakness Status: Acute Assessment and Plan: Ongoing for approximately 4 days Etiology is not entirely clear vital signs have been stable and his workup thus far has really been unremarkable. Echocardiogram EF of 78% grade 2 diastolic dysfunction hypopituitarism, baseline cortisol level TSH is slightly low and free T4 is 1.05 check a testosterone level sleep apnea is untreated for many years which could be causing his daytime somnolence blood cultures pending to rule out infection Chest/Abd/Pelvic with contrast does not show any signs of infection Thyroid ultrasound showed very small nodule Fall precautions PT/OT has been consulted. Patient does have a cough with sputum production that is green in nature, could be allergies, he stated that when this happens in the past that he is usually given ampicillin, which usually takes care of it Will start him on Augmentin for possible sinus infection (2) Transient alteration of awareness: Code(s): R40.4 - Transient alteration of awareness Status: Acute Assessment and Plan: Alert and oriented x4 Reported slurred speech, hypersomnolence absent or partial seizures witness him having periods up to 20 seconds where he would not speak and was staring straight ahead Brain MRI no stroke, however there remains a tumor [id number] on the left side sella, with operative changes EEG ordered for possible seizures Neurology consulted, however, is not in this week, will have the patient follow up with his neurosurgery See above (3) Hypertension: Code(s): I10 - Essential (primary) hypertension Status: Acute Assessment and Plan: Current BP is 148/76 Resume home amlodipine 10mg PO Daily, losartan 25mg PO daily Trend BP Adjust therapy as indicated (4) Hypothyroidism: Code(s): E03.9 - Hypothyroidism, unspecified Status: Acute Assessment and Plan: TSH 0.352, T4 1.05 Levothyroxine on hold still Could be partially be causing his symptom Research shows that patient with uncontrolled TSH exhibits stare and lid lag, skin hot and moist, with a afib for subclinical hyperthyroidism Will restart levothyroxine (5) Pituitary adenoma: Code(s): D35.2 - Benign neoplasm of pituitary gland Status: Acute Assessment and Plan: MRI of the pituitary gland ordered in conjunction with brain MRI. Could be the reason for the hyperthyroidism Will probably need some outpatient follow up (6) Congestive heart failure: Code(s): I50.9 - Heart failure, unspecified Status: Acute Assessment and Plan: BNP 233 Echo shows EF of 78% and grade 2 diastolic dysfunction Give one dose of Lasix since he has a new cough Trend urine output Probably a chronic diastolic heart failure, do not think that he is in acute exacerbation at this time Trend weight (7) Blood in stool, delfin: Code(s): K92.1 - Melena Status: Acute Assessment and Plan: Reports delfin red blood with stools x 2 No stool since yesterday H/H stable Trend H/H and repeat labs in the am Sounds more like a hemorrhoid DS: Summary Hospital Course Hospital Course: This is a pleasant 81-year-old male with history of pituitary adenoma status post resection, cerebrovascular accident, psoriatic arthritis, hypertension, hypothyroidism, and other comorbidities who presented to the emergency department via EMS from home for evaluation of weakness and altered mental status. It was reported that patient would go in and out of transient states where he would be eating or doing an activity and he would just fall asleep. Upon arrival patient was noted
--- NOTE | 2022-03-02 09:45 | P.DS_ITS ---
DS: Admitting Diagnosis Discharge Date 03/02/2215 Admitting Diagnosis generalized weakness, transient alteration of awareness DS: Discharge Diagnosis Discharge Diagnosis (1) Generalized weakness: Code(s): R53.1 - Weakness Status: Acute Assessment and Plan: * Ongoing for approximately 4 days * Etiology is not entirely clear * vital signs have been stable and his workup thus far has really been unremarkable. * Echocardiogram EF of 78% grade 2 diastolic dysfunction * hypopituitarism, baseline cortisol level * TSH is slightly low and free T4 is 1.05 * check a testosterone level * sleep apnea is untreated for many years which could be causing his daytime somnolence * blood cultures pending to rule out infection * Chest/Abd/Pelvic with contrast does not show any signs of infection * Thyroid ultrasound showed very small nodule * Fall precautions * PT/OT has been consulted. * Patient does have a cough with sputum production that is green in nature, could be allergies, he stated that when this happens in the past that he is usually given ampicillin, which usually takes care of it * Will start him on Augmentin for possible sinus infection (2) Transient alteration of awareness: Code(s): R40.4 - Transient alteration of awareness Status: Acute Assessment and Plan: * Alert and oriented x4 * Reported slurred speech, hypersomnolence * absent or partial seizures witness him having periods up to 20 seconds where he would not speak and was staring straight ahead * Brain MRI no stroke, however there remains a tumor [id number] on the left side sella, with operative changes * EEG ordered for possible seizures * Neurology consulted, however, is not in this week, will have the patient follow up with his neurosurgery * See above (3) Hypertension: Code(s): I10 - Essential (primary) hypertension Status: Acute Assessment and Plan: * Current BP is 148/76 * Resume home amlodipine 10mg PO Daily, losartan 25mg PO daily * Trend BP * Adjust therapy as indicated (4) Hypothyroidism: Code(s): E03.9 - Hypothyroidism, unspecified Status: Acute Assessment and Plan: * TSH 0.352, T4 1.05 * Levothyroxine on hold still * Could be partially be causing his symptom * Research shows that patient with uncontrolled TSH exhibits stare and lid lag, skin hot and moist, with a afib for subclinical hyperthyroidism * Will restart levothyroxine (5) Pituitary adenoma: Code(s): D35.2 - Benign neoplasm of pituitary gland Status: Acute Assessment and Plan: * MRI of the pituitary gland ordered in conjunction with brain MRI. * Could be the reason for the hyperthyroidism * Will probably need some outpatient follow up (6) Congestive heart failure: Code(s): I50.9 - Heart failure, unspecified Status: Acute Assessment and Plan: * BNP 233 * Echo shows EF of 78% and grade 2 diastolic dysfunction * Give one dose of Lasix since he has a new cough * Trend urine output * Probably a chronic diastolic heart failure, do not think that he is in acute exacerbation at this time * Trend weight (7) Blood in stool, delfin: Code(s): K92.1 - Melena Status: Acute Assessment and Plan: * Reports delfin red blood with stools x 2 * No stool since yesterday * H/H stable * Trend H/H and repeat labs in the am * Sounds more like a he
[2022-03-02] MEDS: LEVOTHYROXINE SODIUM 112 MCG TABLET PO (10:16)
[2022-03-02 11:32] LABS: Glucose Point of Care 105 mg/dl (65-105)
[2022-03-02 14:00] VITALS: BP 145/65; PULSE 60; RESP 16; TEMP 36.2; O2SAT 94
[2022-03-02 14:22] LABS: Hematocrit 41.7 % (42.0-52.0)
[2022-03-02 14:55] LABS: IFOB Positive Control Positive; Immunochemical Fecal Occult Bl Negative (N)
--- NOTE | 2022-03-07 09:30 | WPDNEUROLOGY ---
Neurology EEG Report General Information Date of Study: 02/28/22 TEST eeg DIAGNOSIS transient alteration of awareness CONDITION OF RECORDING awake, drowsy and sleep EEG NUMBER [id number] CLINICAL HISTORY patient reported yesterday he felt very weak and had some confusion but feels better on the day of EEG. EEG DESCRIPTION basic resting occipital frequency consists of low to medium voltage 9 to 11 hertz per 2nd alpha admixed with low-voltage 15 to 18 hertz per 2nd beta activity. Low-voltage beta activity seen during drowsiness admixed with waxing and waning posterior alpha rhythm. Bilateral symmetrical sleep activity seen during sleep with intermittent regular EKG artifacts. Bilateral medium voltage 2 to 3 hertz per 2nd delta activity seen spontaneously lasting for about 3 seconds during the later part of the tracing .hyperventilation not done. Non paroxysmal ,nonfocal, non lateralizing. IMPRESSION abnormal record due to the presence of short lasting delta activity discharge. clinical correlation recommended this abnormality could be suggestive of organic or metabolic encephalopathy or postictal state.
[2022-03-08 08:46] LABS: Testosterone Free 3.3 pg/mL (30.0-135.0); Testosterone Total 19 ng/dL (250-1100)
== END 2022-03-02 15:30 | disposition home or self-care (01) | DRG 884 ==
LOC: ANHED 16:35 → ANH2MED 19:34
PROVIDERS: Physician Assistant; Admitting Provider Internal Medicine; Emergency Provider Emergency Medicine; Visit Provider Nurse Practitioner
DX: R40.4 Transient alteration of awareness (principal); K92.1 Melena; I10 Essential (primary) hypertension; E03.9 Hypothyroidism, unspecified; Z86.73 Personal history of transient ischemic attack (TIA), and cerebral infarction without residual deficits; E78.5 Hyperlipidemia, unspecified; Z86.718 Personal history of other venous thrombosis and embolism; Z82.3 Family history of stroke; K64.8 Other hemorrhoids; D49.6 Neoplasm of unspecified behavior of brain; D35.2 Benign neoplasm of pituitary gland; Z79.899 Other long term (current) drug therapy; Z79.82 Long term (current) use of aspirin
CPT/HCPCS: 36415; 36600; 70450; 70553; 71045; 71260; 74177; 76536; 80048; 80053; 81001; 82140; 82274; 82533; 82607; 82805; 82948; 83605; 83735; 83880; 83970; 84402; 84403; 84439; 84443; 84484; 85014; 85018; 85025; 85027; 85610; 85730; 87040; 93005; 93880; 94762; 95816; 96361; 96365; 96375; 97161; 97165; 99285; A9270; A9577; C8929; G0378; J0131; J1100; J1885; J1940; J7030; Q9957; Q9967

== ENCOUNTER 2022-04-16 02:53 | Day surgery (SDC) | payer MEDICARE, OTHER, SELFPAY ==
[2022-04-05 15:14] VITALS: BMI 35.9
--- NOTE | 2022-04-16 07:46 | WPDANESEPPF ---
Anes - Initial Pre Proc Eval Procedure: Operation Date: 04/16/22 13:00 Proposed Procedures p Screening Colonoscopy - Abrahan Enamorado MD Date/Time: 04/16/22 07:46 Surgeon: Abrahan Enamorado MD Pre Op Diagnosis: family hx of colon ca, hx of colon polyps Patient Data Age: 81 Gender: M Height: 1.73 m Weight: 107 kg Allergies Allergy/AdvReac Type Severity Reaction Status Date / Time No Known Allergies Allergy Unverified 04/16/22 11:51 Home Medications Medication Instructions Recorded Confirmed Type aspirin 81 mg tablet,delayed 81 mg PO DAILY 01/12/20 04/05/22 History release cholecalciferol (vitamin D3) 50 25 mcg PO DAILY 01/12/20 04/05/22 History mcg (2,000 unit) capsule latanoprost 0.005 % eye drops 1 drop EACH EYE QPM 01/12/20 04/05/22 History levothyroxine 112 mcg tablet 112 mcg PO DAILY 01/12/20 04/05/22 History pravastatin 40 mg tablet 40 mg PO DAILY #90 tablet 05/22/21 04/05/22 Rx amlodipine 10 mg tablet 10 mg PO DAILY #90 tablet 08/07/21 04/05/22 Rx brimonidine-timolol [Combigan] 1 drp LEFT EYE BID 02/28/22 04/05/22 History losartan 50 mg PO DAILY 02/28/22 04/05/22 History sodium sul 1.479 gram-potas ch See Rx Instructions .ROUTE 04/04/22 Rx 0.188 gram-magnes sul 0.225 gram .COMPLEX #24 tablet tablet pregabalin 75 mg PO BID 04/05/22 04/05/22 History sulfasalazine 1,000 mg PO BID 04/05/22 04/05/22 History Patient hx anesthesia problems: none Family hx anesthesia problems: none Results Review: All pre-operative results and documents have been reviewed as part of the pre-operative evaluation. [facility] Past Medical History Medical History (Updated 03/02/22 @ 14:09 by RICK Miner) Cerebrovascular accident Chronic facial pain V1 V2 distribution following multiple surgeries and radiation for pituitary adenoma. Glaucoma Hyperlipidemia Hypertension Hypogonadism Hypothyroidism Pituitary adenoma Status post transsphenoidal resection in October 2006, CyberKnife radiosurgery in August 2007, and stereotactic craniotomy for debulking in December 2018 followed by postoperative radiation. Psoriasis Psoriatic arthritis Right leg DVT Surgical History Surgical History (Updated 02/27/22 @ 22:57 by Dominique Linn PA-C) History of bilateral cataract extraction History of colonoscopy with polypectomy Family History Family History Mother Family history of cardiovascular disease, Onset Age: 89 Father Family history of cardiovascular disease, Onset Age: 92 Sibling Acute myocardial infarction Cerebrovascular accident Social History Social History (Updated 02/28/22 @ 00:24 by Dominique Linn PA-C) Social History: The patient lives in [place] with his and daughter. No alcohol, tobacco, or illicit substance use. He designates his Aleah and his daughter Chula as his surrogate decision makers. Code status: Full code. Smoking status: Never smoker Alcohol intake: former Living arrangements: with family Spiritual care concerns: No Anes - Eval Final PreProcedure Day of Procedure 04/16/22 07:46 Patient weight: obese Heart: regular rate and rhythm Lungs: clear to auscultation and normal air movement Airway: Mallampati scale class II Neurological: alert and oriented Last oral intake: >/= 8 hours ASA classification: III Emergent: no Anesthetic plan: proceed Anesthesia type and monitoring: general GIVS and standard monitoring Results Review: All pre-operative results and documents have been reviewed as part of the pre-operative evaluation. Informed Consent: The patient's anesthetic plan and its attendant risks and benefits were discussed with the patient/family/POA. Questions were solicited and answers provided to the satisfaction of the patient/family/POA.
[2022-04-16 11:54] VITALS: BP 133/65; PULSE 65; RESP 20; TEMP 35.7; O2SAT 98
--- NOTE | 2022-04-16 12:45 | WPDGICN ---
Assessment and Plan Assessment and plan (1) History of colon polyps: Code(s): Z86.010 - Personal history of colonic polyps Status: Acute Assessment and Plan: Patient has a prior history of colon polyps. For this reason surveillance colonoscopies have been performed at 3-5 year intervals in the past. (2) Family hx of colon cancer: Code(s): Z80.0 - Family history of malignant neoplasm of digestive organs Status: Acute Assessment and Plan: Patient's sister with colon cancer in in additional brother has had colon polyps. That is for these reasons patient has had intermittent surveillance colonoscopies. GI Consult Note Consult date/time: 04/16/22 12:45 HPI: Deon Marrero is a 81 year old male Presents for colonoscopy. Patient states his current weight appetite and bowel movements are normal. He denies abdominal pain. He has had no bleeding. Patient does have a prior history of colon polyps. Patient's family history is significant his sister with colon cancer a brother has had colon polyps. Patient reports his own bowel habits are normal. he presents today for neoplasia screening. Review of Systems Review of Systems: All systems reviewed & are unremarkable except as noted in HPI and below PMFSH Past Medical History Medical History (Updated 04/16/22 @ 12:47 by Abrahan Enamorado MD) Cerebrovascular accident Chronic facial pain V1 V2 distribution following multiple surgeries and radiation for pituitary adenoma. Glaucoma Hyperlipidemia Hypertension Hypogonadism Hypothyroidism Pituitary adenoma Status post transsphenoidal resection in October 2006, CyberKnife radiosurgery in August 2007, and stereotactic craniotomy for debulking in December 2018 followed by postoperative radiation. Psoriasis Psoriatic arthritis Right leg DVT Surgical History Surgical History (Updated 02/27/22 @ 22:57 by Dominique Linn PA-C) History of bilateral cataract extraction History of colonoscopy with polypectomy Family History Family History Mother Family history of cardiovascular disease, Onset Age: 89 Father Family history of cardiovascular disease, Onset Age: 92 Sibling Acute myocardial infarction Cerebrovascular accident Social History Social History (Updated 02/28/22 @ 00:24 by Dominique Linn PA-C) Social History: The patient lives in [place] with his and daughter. No alcohol, tobacco, or illicit substance use. He designates his Aleah and his daughter Chula as his surrogate decision makers. Code status: Full code. Smoking status: Never smoker Alcohol intake: former Living arrangements: with family Spiritual care concerns: No Meds Home Medications and Allergies Home Medications Medication Instructions Recorded Confirmed Type aspirin 81 mg tablet,delayed 81 mg PO DAILY 01/12/20 04/05/22 History release cholecalciferol (vitamin D3) 50 25 mcg PO DAILY 01/12/20 04/05/22 History mcg (2,000 unit) capsule latanoprost 0.005 % eye drops 1 drop EACH EYE QPM 01/12/20 04/05/22 History levothyroxine 112 mcg tablet 112 mcg PO DAILY 01/12/20 04/05/22 History pravastatin 40 mg tablet 40 mg PO DAILY #90 tablet 05/22/21 04/05/22 Rx amlodipine 10 mg tablet 10 mg PO DAILY #90 tablet 08/07/21 04/05/22 Rx brimonidine-timolol [Combigan] 1 drp LEFT EYE BID 02/28/22 04/05/22 History losartan 50 mg PO DAILY 02/28/22 04/05/22 History sodium sul 1.479 gram-potas ch See Rx Instructions .ROUTE 04/04/22 Rx 0.188 gram-magnes sul 0.225 gram .COMPLEX #24 tablet tablet pregabalin 75 mg PO BID 04/05/22 04/05/22 History sulfasalazine 1,000 mg PO BID 04/05/22 04/05/22 History Allergies Allergy/AdvReac Type Severity Reaction Status Date / Time No Known Allergies Allergy Unverified 04/16/22 11:51 Vital Signs Vital Signs - 24 hr 04/16/22 11:54 Tempera
[2022-04-16] MEDS: LACTATED RINGERS 1,000 ML 150 ML IV CONT (12:53)
[2022-04-16 13:13] VITALS: BP 136/78; PULSE 65; RESP 12; O2SAT 97
[2022-04-16 13:23] VITALS: BP 165/83; PULSE 80; RESP 21; O2SAT 97
[2022-04-16 13:33] VITALS: BP 177/95; PULSE 72; RESP 19; O2SAT 100
== END 2022-04-16 13:45 | disposition home or self-care (01) ==
PROVIDERS: Visit Provider Internal Medicine Gastroenterology
PROC: 0DJD8ZZ Inspection of Lower Intestinal Tract, Via Natural or Artificial Opening Endoscopic (ICD-10-PCS; CPT 45378; principal; 2022-04-16 13:00)
DX: Z12.11 Encounter for screening for malignant neoplasm of colon (principal); K63.5 Polyp of colon; K64.8 Other hemorrhoids; Z80.0 Family history of malignant neoplasm of digestive organs; I10 Essential (primary) hypertension; E03.9 Hypothyroidism, unspecified; L40.50 Arthropathic psoriasis, unspecified; L40.9 Psoriasis, unspecified; Z86.73 Personal history of transient ischemic attack (TIA), and cerebral infarction without residual deficits; E78.5 Hyperlipidemia, unspecified; H40.9 Unspecified glaucoma; Z86.718 Personal history of other venous thrombosis and embolism; E66.9 Obesity, unspecified; Z68.34 Body mass index [BMI] 34.0-34.9, adult
CPT/HCPCS: 45380; 88305; J2704; J7120

== ENCOUNTER 2023-02-08 10:07 | Emergency (ER) | payer MEDICARE, OTHER, SELFPAY ==
--- NOTE | 2023-02-08 10:11 | ED.MALEGU ---
HPI - Male Genitourinary General Chief complaint: Urogenital-Male Stated complaint: trouble urinating and burning Time Seen by Provider: 02/08/23 10:20 Source: patient, RN notes reviewed and old records reviewed Mode of arrival: ambulatory Limitations: no limitations History of Present Illness HPI Narrative: 82-year-old male presents to the [facility] with complaints of urgency, burning and frequency that has been increasing over the last week or so. Has made an appointment with the urologist at the end of the month. Denies any abdominal pain, back pain. Reports that he has been getting up of about 5 times per night due to frequency denies fevers reports a history of prostate issues, recently discontinued using testosterone Related Data Home Medications Medication Instructions Recorded Confirmed aspirin 81 mg tablet,delayed 81 mg PO DAILY 01/12/20 02/08/23 release cholecalciferol (vitamin D3) 50 25 mcg PO DAILY 01/12/20 02/08/23 mcg (2,000 unit) capsule latanoprost 0.005 % eye drops 1 drop EACH EYE QPM 01/12/20 02/08/23 levothyroxine 112 mcg tablet 112 mcg PO DAILY 01/12/20 02/08/23 brimonidine 0.2 %-timolol 0.5 % 1 drp LEFT EYE BID 02/28/22 02/08/23 eye drops (Combigan) losartan 50 mg tablet 50 mg PO DAILY 02/28/22 02/08/23 pregabalin 75 mg capsule 75 mg PO BID 04/05/22 02/08/23 sulfasalazine 500 mg tablet 1,000 mg PO BID 04/05/22 02/08/23 carvedilol 6.25 mg tablet 6.25 mg PO DAILY 02/08/23 02/08/23 hydrochlorothiazide 25 mg tablet 25 mg PO DAILY 02/08/23 02/08/23 ketoconazole 2 % topical cream 1 applic topical DAILY 02/08/23 02/08/23 Allergies Allergy/AdvReac Type Severity Reaction Status Date / Time No Known Allergies Allergy Verified 02/08/23 10:28 Review of Systems Review of Systems: All systems reviewed & are unremarkable except as noted in HPI and below Constitutional: Constitutional: Reports no additional constitutional complaints Eyes: Eyes: Reports no additional eye complaints ENT: Reports system reviewed and no additional complaints, except as documented Cardiovascular: Cardiovascular: Reports no additional cardiovascular complaints, Denies chest pain and Denies dyspnea Respiratory: Respiratory: Reports no additional respiratory complaints, Denies chest congestion, Denies cough and Denies dyspnea Gastrointestinal: Gastrointestinal: Reports no additional gastrointestinal complaints, Denies abdominal pain, Denies nausea and Denies vomiting Genitourinary: Genitourinary: Reports as per HPI, Reports dysuria and Reports nocturia Musculoskeletal: Musculoskeletal: Reports no additional musculoskeletal complaints Integumentary/Breasts: Skin/Breast: Reports system reviewed and no additional complaints, except as docu Neurologic: Reports system reviewed and no additional complaints, except as documented Psychiatric: Psychiatric: Reports no additional psychiatric complaints Allergic/Immunologic: Allergic/Immunologic: Reports no additional allergic/immunologic complaints PMFSH Past Medical History Medical History Cerebrovascular accident Chronic facial pain V1 V2 distribution following multiple surgeries and radiation for pituitary adenoma. Glaucoma Hyperlipidemia Hypertension Hypogonadism Hypothyroidism Pituitary adenoma Status post transsphenoidal resection in October 2006, CyberKnife radiosurgery in August 2007, and stereotactic craniotomy for debulking in December 2018 followed by postoperative radiation. Psoriasis Psoriatic arthritis Right leg DVT Surgical History Surgical History History of bilateral cataract extraction History of colonoscopy with polypectomy Family History Family History Mother Family history of cardiovascular disease, Onset Age: 89 Father Family history of cardiovascular d
[2023-02-08 10:22] VITALS: BP 155/72; PULSE 68; RESP 18; TEMP 36.7; O2SAT 98
== END 2023-02-08 10:42 | disposition home or self-care (01) ==
PROVIDERS: Emergency Provider Nurse Practitioner
DX: R30.0 Dysuria (principal); E78.5 Hyperlipidemia, unspecified; I10 Essential (primary) hypertension; E03.9 Hypothyroidism, unspecified; Z79.82 Long term (current) use of aspirin; Z86.73 Personal history of transient ischemic attack (TIA), and cerebral infarction without residual deficits; Z86.718 Personal history of other venous thrombosis and embolism
CPT/HCPCS: 81003; 87086; 99213; G0463

== ENCOUNTER 2024-02-09 11:08 | Emergency (ER) | payer OTHER, MEDICARE, SELFPAY ==
[2024-02-09] VITALS (22 sets, daily range): BP systolic 156–197; BP diastolic 64–103; PULSE 49–59; RESP 13–19; TEMP 36.2; O2SAT 90–98
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
--- NOTE | ~2024-02-09 | CT_ITS ---
EXAMINATION: CT brain wo con DATE: 02/09/2024 14:26 INDICATION: gonzalez/hypertension . TECHNIQUE: Computed tomography (CT) of the head was performed without intravenous contrast. The mA wa s adjusted according to patient size. Iterative reconstruction technique was employed. The dose-lengt h product was 605.33 mGy-cm. COMPARISON: 02/27/2022; MR pituitary for 622. FINDINGS: No acute intracranial hemorrhage or extra-axial fluid collection. No hydrocephalus, mass, or herniation. No acute ischemic infarct. Unremarkable dural venous sinus attenuation. No acute osseous abnormality. Left temporal craniotomy defect Right sphenoid sinus opacification, the remaining aerated spaces are clear. Mild atrophy and chronic white matter change. Atherosclerotic intracranial calcification. Bilateral l ens replacements. Stable roughly 1.5 cm mass in the left side of the sella turcica. IMPRESSION: No acute intracranial process. Reviewed, dictated and finalized at location K.
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
[2024-02-09 11:57] LABS: Basophils Percent Auto 0.6 % (0.2-1.2); Eosinophils Absolute Auto 0.2 K/mm3 (0-0.3); Eosinophils Percent Auto 2.6 % (0-4.4); Hematocrit 41.6 % (42.0-52.0); Hemoglobin 13.4 g/dL (14.0-18.0); Immature Granulocyte Absolute 0.08 K/mm3 (0.00-0.031); Immature Granulocyte Percent A 1.2 % (0-0.5); Lymphocytes Absolute Auto 2.39 K/mm3 (0.9-3.2); Lymphocytes Percent Auto 34.6 % (18.3-44.2); Mean Corpuscular HGB Conc 32.2 g/dl (32-36); Mean Corpuscular Hemoglobin 28.7 pg (26-34); Mean Corpuscular Volume 89.1 fl (80-100); Mean Platelet Volume 9.6 fl (7.4-10.4); Monocytes Absolute Auto 0.6 K/mm3 (0.1-0.6); Monocytes Percent Auto 8.6 % (2.6-8.5); Neutrophils Absolute Auto 3.6 K/mm3 (1.3-6.7); Neutrophils Percent Auto 52.4 % (45.5-73.1); Platelet Count Result 185 k/mm3 (150-375); Red Blood Count 4.67 M/mm3 (4.6-6.20); Red Cell Distribution Width 14.5 % (11.5-14.5); White Blood Count 6.9 K/mm3 (4.5-10.0)
[2024-02-09 12:14] LABS: Alanine Aminotransferase 26 U/L (6-50); Albumin Level 4.2 g/dL (3.5-5.1); Alkaline Phosphatase 68 U/L (38-126); Anion Gap 5 mmol/L (8-16); Aspartate Amino Transferase 39 U/L (17-59); Bilirubin,Total 0.5 mg/dL (0.2-1.3); Blood Urea Nitrogen 15 mg/dL (9-20); Calcium 9.6 mg/dL (8.4-10.2); Carbon Dioxide 28 mmol/L (22-30); Chloride 105 mmol/L (98-107); Estimated CRCL calculation 86 ml/min; Estimated Glomerular Filt Rate > 60; Glucose 103 mg/dL (65-110); Potassium 4.1 mmol/L (3.4-5.0); Sodium 138 mmol/L (137-145)
[2024-02-09] MEDS: hydrALAZINE HCL 20 MG/ML VIAL 10 MG IV PUSH (14:28)
[2024-02-09] MEDS: ONDANSETRON INJ 4 MG/2 ML VIAL IV PUSH (14:28)
[2024-02-09] MEDS: MORPHINE SULFATE (*CRX) 2 MG/ML INJ IV PUSH (14:28)
[2024-02-09 14:49] LABS: Appearance Urine Clear (Clear); Bilirubin Urine Negative (Negative); Blood Urine Negative (Negative); Color Urine Yellow (Yellow); Glucose Urine UA Negative (Negative); Ketones Urine Negative (Negative); Leukocyte Esterase Ur Negative LEU/UL (Negative); Nitrate Urine Negative (Negative); Protein Urine Negative (Negative); Specific Grav Ur 1.013 (1.001-1.035); pH Urine 7.5 (5.0-9.0)
[2024-02-09 15:01] LABS: Add Urine Microscopic? NO
== END 2024-02-09 15:43 | disposition home or self-care (01) ==
PROVIDERS: Emergency Provider Nurse Practitioner Family
DX: R10.9 Unspecified abdominal pain (principal); I10 Essential (primary) hypertension; E78.5 Hyperlipidemia, unspecified; E03.9 Hypothyroidism, unspecified; E66.9 Obesity, unspecified; Z68.37 Body mass index [BMI] 37.0-37.9, adult; L40.50 Arthropathic psoriasis, unspecified; Z86.73 Personal history of transient ischemic attack (TIA), and cerebral infarction without residual deficits; Z86.718 Personal history of other venous thrombosis and embolism; Z86.010 Personal history of colon polyps; Z98.42 Cataract extraction status, left eye; Z98.41 Cataract extraction status, right eye; Z79.82 Long term (current) use of aspirin; V43.62XA Car passenger injured in collision with other type car in traffic accident, initial encounter
CPT/HCPCS: 36415; 70450; 71250; 74176; 80053; 85025; 96374; 96375; 99284; J0360; J2270; J2405

== ENCOUNTER 2024-09-30 07:53 | Outpatient (CLI) | payer MEDICARE, OTHER, SELFPAY ==
--- NOTE | 2024-10-25 18:05 | WPDSLEEPSTUD ---
Sleep Study Date of Study: 09/30/24 Ordering Provider: Servando Gallegos Interpreting Physician: Kaylyn Irvin DO Sleep Study Type: Split Polysomnogram Height: 1.73 m Weight: 114.759 kg Body Mass Index: 38.5 Neck Circumference (inches): 20 [place]: 7 Reason for Sleep Study Previously diagnosed LUCILLE and had CPAP. Hasn't used it in 5+ years. Sleep History The patient is an 84-year-old male that had a sleep study ordered by his flux tube attendant for evaluation of sleep apnea. The patient occasionally awakens from sleep short of breath. He denies awakening at night with heartburn, belching or cough. He frequently snores and 8 is occasionally loud enough that others complain. He occasionally has trouble sleeping when he has a cold. He occasionally wakes up gasping for air throughout the night. He occasionally has breathing problems at night observed by himself or others. He denies sweating excessively at night. He rarely has heart palpitations or irregular heartbeats during the night. He frequently falls asleep during the day but never while driving. He occasionally experiences loss of muscle tone when extremely emotional. He denies having trouble at school or work due to sleepiness. He occasionally feels unable to move while waking up or falling asleep. He denies experiencing vivid dreamlike scenes upon awakening or falling asleep. He denies feeling afraid of going to sleep. He occasionally has nightmares. He occasionally remembers his dreams. He occasionally has thoughts racing through his mind. He occasionally feels sad, depressed and anxious. He frequently has muscular tension. He occasionally notices parts of his body jerk. He occasionally kicks during the night. He occasionally has crawling and aching feelings in his legs and occasionally has leg pain during the night. He occasionally grinds his teeth during sleep and occasionally awakens with morning jaw pain. He is occasionally bothered by pain during the day and occasionally awakened by pain during the night. He occasionally wakes up feeling stiff in the morning. He occasionally wakes up with sore or achy muscles. He frequently wakes up with pain in the neck, spine and other joints. He goes to bed at 10:00 p.m. on both weekdays and weekends. It takes him 30 minutes to fall asleep. He wakes up 4 times throughout the night to urinate and is able to fall back asleep within 10 minutes. He wakes up at 6:00 a.m. on both weekdays and weekends. He typically gets 5 hours of sleep per night. He will stay in bed for 5 minutes after waking up in the morning. He currently lives with his . He denies consuming any caffeinated beverages within 2 hours of bedtime. He denies engaging in physical exercise before bedtime. He denies reading and watching television before falling asleep. He will take naps in afternoon and the evening but they are not refreshing. He consumes 2 glasses of caffeinated beverage per day. He denies tobacco, alcohol and recreational drug use. [facility] Past Medical History Medical History Cerebrovascular accident Chronic facial pain V1 V2 distribution following multiple surgeries and radiation for pituitary adenoma. Constipation Glaucoma Hyperlipidemia Hypertension Hypogonadism Hypothyroidism Obese Pituitary adenoma Status post transsphenoidal resection in October 2006, [employer] radiosurgery in August 2007, and stereotactic craniotomy for debulking in December 2018 followed by postoperative radiation. Psoriasis Psoriatic arthritis Right leg DVT Surgical History Surgical History History of bilateral cataract extraction History of colonoscopy with polypectomy Family History Family History Mother Family history of cardiovascular disease, Onset Age: 89 Father Family history of cardiovascular disease, Onset Age: 92 Sibling Acute myocardial infarction Cerebrovascular accident Social History Social History Social History: The patient lives in [place] with his and daughter. No alcohol, tobacco, or illicit substance use. He designates his Aleah and his daughter Chula as his surrogate decision makers. Code status: Full code. Smoking status: Never smoker Alcohol intake: former Living arrangements: with family Spiritual care concerns: No Medications Home Medications Medication Instructions Recorded Confirmed Type aspirin 81 mg tablet,delayed 81 mg PO DAILY 01/12/20 10/14/23 History release cholecalciferol (vitamin D3) 50 25 mcg PO DAILY 01/12/20 10/14/23 History mcg (2,000 unit) capsule latanoprost 0.005 % eye drops 1 drop EACH EYE QPM 01/12/20 10/14/23 History levothyroxine 112 mcg tablet 112 mcg PO DAILY 01/12/20 10/14/23 History pravastatin 40 mg tablet 40 mg PO DAILY #90 tabs 05/22/21 10/14/23 Rx brimonidine 0.2 %-timolol 0.5 % 1 drp LEFT EYE BID 02/28/22 10/14/23 History eye drops (Combigan) losartan 50 mg tablet 50 mg PO DAILY 02/28/22 10/14/23 History pregabalin 75 mg capsule 75 mg PO BID 04/05/22 10/14/23 History sulfasalazine 500 mg tablet 1,000 mg PO BID 04/05/22 10/14/23 History carvedilol 6.25 mg tablet 6.25 mg PO DAILY 02/08/23 10/14/23 History cephalexin 500 mg capsule 500 mg PO Q12H #10 caps 02/08/23 10/14/23 Rx ketoconazole 2 % topical cream 1 applic topical DAILY 02/08/23 10/14/23 History escitalopram oxalate 10 mg tablet 10 mg PO DAILY 10/14/23 10/14/23 History furosemide 40 mg tablet 40 mg PO QAM 10/14/23 10/14/23 History Sleep Procedure A full night split study using the [employer] multi-channel system recorded the standard physiologic parameters including EEG, EOG, submentalis EMG, anterior tibialis EMG, EKG, body position, nasal and oral airflow using nasal pressure sensor and thermistor.? Respiratory parameters of chest and abdominal movements were recorded with Respiratory Inductance Plethysmography belts. Oxygen saturation was recorded by pulse oximetry. Video monitoring was also performed. Sleep stages, periodic limb movements, and EEG arousals were scored in 30 second epochs according to the criteria of the AASM Scoring Manual. The Apnea-Hypopnea Index was calculated using CMS guidelines for definition of hypopnea with 4% O2 desaturations while scoring respiratory events. Sleep Architecture During the diagnostic portion of the study, the total recording time was 175.0 minutes. The total sleep time was 139.0 minutes. Sleep latency was 20.5 minutes.? REM sleep was not achieved during this portion of the study. Sleep Efficiency was 79.4%. The patient had 14 awakenings for an awakening index of 6.0. Wake after sleep onset time was 15.5 minutes. The patient spent 19.5 minutes, 14.0% of total sleep time in Stage N1. The patient spent 119.5 minutes, 86.0% in Stage N2. The patient spent 0.0 minutes, 0.0% in Stage N3. The patient spent 0.0 minutes, 0.0% in Stage REM sleep. At 12:36:21 AM the patient was placed on PAP treatment and was titrated at pressures ranging from 5 cm H20 up to 17 cm H20. During the treatment portion of the study, the total recording time was 323.6 minutes.? The total sleep time was 229.0 minutes. Sleep latency was 8.5 minutes. REM latency was 223.5 minutes. Sleep Efficiency was 70.8%. Wake after Sleep Onset time was 86.5 minutes. The patient spent 36.0 minutes, 15.7% of total sleep time in Stage N1. The patient spent 130.0 minutes, 56.8% in Stage N2. The patient spent 32.0 minutes, 14.0% in Stage N3. The patient spent 31.0 minutes, 13.5% in Stage REM. Respiratory Analysis During the diagnostic portion of the study, the patient had 17 hypopneas, 30 obstructive apneas and 1 central apnea for an overall Apnea Hypopnea Index of 20.7 events per hour. The REM Apnea Hypopnea Index was 0. The NREM Apnea Hypopnea Index was 20.7. The patient had a Central Apnea Hypopnea Index of 0.4. There was no evidence of Scar-Morales Respirations. During the treatment portion of the study, the patient had 62 hypopneas, 10 obstructive apneas, 1 mixed apnea and 2 central apneas for an overall Apnea Hypopnea Index of 19.7 events per hour. The REM Apnea Hypopnea Index was 3.9. The NREM Apnea Hypopnea Index was 22.1. The patient had a Central Apnea Hypopnea Index of 0.5. There was no evidence of Scar-Morales Respirations. The patient was started on CPAP 5 cm H2O and titrated to CPAP 17 cm H2O due to obstructive apneas and hypopneas. The patient was able to fall asleep starting on CPAP 5 cm H2O. The patient was able to achieve REM sleep starting on CPAP 15 cm H2O. The patient was able to achieve a residual AHI less than 5 with both NREM and REM sleep on the final pressure. On CPAP 17 cm H2O, the patient spent 47.5 minutes in NREM and 17 minutes in REM with 1 hypopnea, resulting in an AHI of 0.9. The patient had a sleep efficiency of 82.7% on this pressure setting. Arousals During the diagnostic portion of the study, there were a total of 101 arousals for an arousal index of 43.6.? There were 22 respiratory arousals for an index of 9.5. There were 29 periodic limb movement arousals for an index of 12.5.? There were 2 isolated limb movement arousals for an index of 0.9. There were 49 spontaneous arousals for an index of 21.2. During the treatment portion of the study, there were a total of 163 arousals for an index of 42.7.? There were 49 respiratory arousals for an index of 12.8. There were 16 periodic limb movement arousals for an index of 4.2.? There were 14 isolated limb movement arousals for an index of 3.7. There were 84 spontaneous arousals for an index of 22.0. Periodic Limb Movements During the diagnostic portion of the study, the patient had 7 isolated limb movements with an index of 3.0. The patient had 277 periodic limb movements with an index of 119.6, which is elevated (normal < 15). The patient had a total of 284 limb movements with a total limb movement index of 122.6. During the treatment portion of the study, the patient had 30 isolated limb movements with an index of 7.9. The patient had 100 periodic limb movements with an index of 26.2, which is elevated (normal < 15). The patient had a total of 130 limb movements with a total limb movement index of 34.1. Oximetry Data During the diagnostic portion of the study, the patient had an average oxygen saturation of 92.7% in wake with a minimum oxygen saturation of 90% and a maximum oxygen saturation of 96%. The patient had an average oxygen saturation of 91.8% in sleep with a minimum oxygen saturation of 85.0% and a maximum oxygen saturation of 96.0%. The patient had 39 oxygen desaturations resulting in an Oxygen Desaturation Index of 16.8. The patient spent 1.6 minutes, 0.9% of total sleep time with an oxygen saturation less than 88%. During the treatment portion of the study, the patient had an average oxygen saturation of 92.5% in wake with a minimum oxygen saturation of 85.0% and a maximum oxygen saturation of 97.0%. The patient had an average oxygen saturation of 92.3% in sleep with a minimum oxygen saturation of 85.0% and a maximum oxygen saturation of 97.0%. The patient had 68 oxygen desaturations resulting in an Oxygen Desaturation Index of 17.8. The patient spent 7.2 minutes, 2.3% of total sleep time with an oxygen saturation less than 88%. Snoring Profile Loud snoring was present in the baseline portion of the study. The snoring resolved once the patient was titrated to CPAP 13 cm H2O. Cardiac Profile The EKG lead showed normal sinus rhythm with frequent PVCs. During the diagnostic portion of the study, the average pulse rate was 54.4 bpm.? The minimum pulse rate was 47.0 bpm. The maximum pulse rate was 62.0 bpm. During the treatment portion of the study, the average pulse rate was 51.2 bpm.? The minimum pulse rate was 44.0 bpm. The maximum pulse rate was 64.0 bpm. EEG Profile No signs of seizure activity seen. Assessment and Plan Assessment and Plan (1) LUCILLE (obstructive sleep apnea): Code(s): G47.33 - Obstructive sleep apnea (adult) (pediatric) Status: Acute Assessment and Plan: In the baseline portion of the study, the patient had an overall AHI of 20.7 with desaturation down to 85%. This is consistent with moderate sleep apnea. The patient was started on CPAP 5 cm H2O and titrated to CPAP 17 cm H2O due to obstructive apneas and hypopneas. The patient's sleep apnea resolved on the final pressure. I recommend that the patient be prescribed CPAP 17 cm H2O, size medium Resmed AirTouch F20 FFM, CPAP filters/tubing and heated humidity. This should be used with all episodes of sleep.? Compliance should be reviewed within 31-90 days of starting therapy for usage greater than 4 hours per night greater than 70% of the nights. The patient should be asked about symptoms such as?excessive daytime sleepiness, quality of sleep, decreased nocturia, increased?mental functioning such as memory, mood, and concentration. While the patient did have a significant amount of periodic limb movements during the study, the frequency significantly decreased once the patient was titrated to the optimal CPAP pressure. I recommend asking the patient about leg movements during his first compliance visit. Data The data obtained during this sleep study is adequate for interpretation. Certification This sleep study has been reviewed by a board certified sleep medicine physician.
[2024-10-25 19:30] VITALS: BMI 38.5
== END 2024-10-01 06:53 | disposition home or self-care (01) ==
LOC: ANHCSM 07:54
DX: G47.61 Periodic limb movement disorder (principal); G47.33 Obstructive sleep apnea (adult) (pediatric)
CPT/HCPCS: 95811

== ENCOUNTER 2024-11-24 10:23 | Outpatient (RCR) | payer MEDICARE, OTHER, SELFPAY ==
[2024-11-24 10:45] VITALS: BMI 39.7
== END 2025-02-22 23:59 | disposition home or self-care (01) ==
LOC: ANHDMC 10:23
DX: E11.9 Type 2 diabetes mellitus without complications (principal); Z71.3 Dietary counseling and surveillance
CPT/HCPCS: 97802